=== PATIENT | male | born 1950 | race Caucasian/White ===

== ENCOUNTER 2021-07-03 13:45 | Inpatient (IN) | payer OTHER ==
[2021-07-03] MEDS ORDERED: NA CHLORIDE 0.9% 1,000 ML ONE (14:33)
--- NOTE | 2021-07-03 14:44 | RAD REPORT ---
EXAM DESCRIPTION: CT - Head C Spine Cap Wo Con - 07/03/2021 2:24 pm CLINICAL HISTORY: Trauma, head and neck injury. Chest, abdomen and pelvis pain. trauma, syncope COMPARISON: No comparisonsNo comparisons TECHNIQUE: CT head without contrast. CT cervical spine without contrast with coronal and sagittal reformatted images. CT chest, abdomen and pelvis with coronal and sagittal reformatted images of the spine. All CT scans are performed using dose optimization technique as appropriate and may include automated exposure control or mA/KV adjustment according to patient size. FINDINGS: CT HEAD WITHOUT CONTRAST: No intracranial hemorrhage, hydrocephalus or extra-axial fluid collection. Remote right cerebellar in farct Mucous retention cyst left maxillary sinus. The calvarium is intact. CT CERVICAL SPINE WITHOUT CONTRAST: No fracture or subluxation. The prevertebral soft tissues are normal in thickness. CT CHEST, ABDOMEN, PELVIS: Thorax: Chest Wall: No abnormal mass Lungs: Probable atelectasis at the right lung base. Pleura: No effusions or pneumothorax. Maylin/Mediastinum: No lymphadenopathy. Aorta/Pulmonary Arteries: Unremarkable Heart: Normal size. Abdomen/Pelvis: Liver: No acute abnormality or suspicious lesions. Biliary: No biliary ductal dilatation. Stomach: Gastrostomy tube. Duodenum: No significant focal abnormality. Pancreas: No significant abnormality. Spleen: No significant abnormality. Adrenal: No suspicious lesions. Kidney/ureter: No hydronephrosis. No renal calculi. Retroperitoneum: No retroperitoneal adenopathy. Vascular: No aneurysm. Bowel: No significant focal abnormality. Peritoneum: No ascites or free air. Fat containing inguinal hernias, left greater than right. Appende ctomy. Bladder: Grossly unremarkable. Reproductive: No adnexal masses. Bones: Slight L1 compression deformity. There is less than 20% loss of height. Other: n/a IMPRESSION: Age indeterminate L1 compression fracture, otherwise no evidence of significant trauma i s identified to the head, neck, chest, abdomen, or pelvis.
--- NOTE | 2021-07-03 15:09 | RAD REPORT ---
EXAM DESCRIPTION: RAD - Chest Single View - 07/03/2021 2:51 pm CLINICAL HISTORY: CONGESTION COMPARISON: No comparisons FINDINGS: Lines: None. Lungs: No evidence of edema or pneumonia. Pleural: No significant pleural effusions or pneumothorax. Cardiac: The heart size is within normal limits. Bones: No acute fractures. Other: IMPRESSION: No acute cardiopulmonary disease.
--- NOTE | 2021-07-03 15:12 | RAD REPORT ---
EXAM DESCRIPTION: RAD - Elbow Left 3 View - 07/03/2021 2:51 pm CLINICAL HISTORY: PAIN COMPARISON: No comparisons FINDINGS: No acute fracture. No malalignment. Lateral view is limited due to positioning. IMPRESSION: No acute osseous abnormality involving the left elbow.
--- NOTE | 2021-07-03 15:13 | RAD REPORT ---
EXAM DESCRIPTION: RAD - Hand Left 3 View - 07/03/2021 2:51 pm CLINICAL HISTORY: PAIN COMPARISON: No comparisons FINDINGS: No acute fracture. No malalignment. Degenerative changes are present at the interphalangea l joints at the base of the thumb. IMPRESSION: No acute osseous abnormality involving the left hand.
--- NOTE | 2021-07-03 15:14 | RAD REPORT ---
EXAM DESCRIPTION: RAD - Knee Right 3 View - 07/03/2021 2:52 pm CLINICAL HISTORY: PAIN COMPARISON: No comparisons FINDINGS: No acute fracture. No malalignment. No significant focal degenerative changes. IMPRESSION: No acute osseous abnormality involving the right knee.
--- NOTE | 2021-07-03 15:14 | RAD REPORT ---
EXAM DESCRIPTION: RAD - Knee Left 3 View - 07/03/2021 2:51 pm CLINICAL HISTORY: PAIN COMPARISON: No comparisons FINDINGS: No acute fracture. No malalignment. Mild medial and lateral compartment narrowing. IMPRESSION: No acute osseous abnormality involving the left knee.
--- NOTE | 2021-07-03 15:15 | RAD REPORT ---
EXAM DESCRIPTION: RAD - Hand Right 3 View - 07/03/2021 2:51 pm CLINICAL HISTORY: PAIN COMPARISON: No comparisons FINDINGS: No acute fracture. No malalignment. Degenerative changes are present at the interphalangea l joints. IMPRESSION: No acute osseous abnormality involving the right hand.
[2021-07-03 15:23] LABS: Absolute Lymphocytes (CBC) 0.7 K/uL (0.7-4.9); Basophils % 0.4 % (0-1.3); Hematocrit 45.5 % (39.6-49.0); Lymphocytes % 7.5 % (15.3-44.8); MPV 7.3 fL (7.6-11.3); Protime INR 1.04; RBC Red Blood Cell Count 5.45 M/uL (4.33-5.43)
[2021-07-03] MEDS ORDERED: IBUPROFEN 400 MG TAB ONE (15:38)
[2021-07-03 15:40] LABS: ALT/SGPT 32 U/L (12-78); AST/SGOT 22 U/L (15-37); Albumin 3.4 g/dL (3.4-5.0); Alkaline Phosphatase 75 U/L (45-117); BUN Blood Urea Nitrogen 14 mg/dL (7-18); Bicarbonate 33 mmol/L (21-32); Bilirubin Direct 0.2 mg/dL (0-0.2); Bilirubin Total 0.7 mg/dL (0.2-1.0); Glucose Level 101 mg/dL (74-106); Magnesium 2.5 mg/dL (1.8-2.4); NT PRO-BNP 125 pg/mL (<125); Potassium 4.1 mmol/L (3.5-5.1); Protein, Total 7.3 g/dL (6.4-8.2); Sodium Level 143 mmol/L (136-145); Troponin (Emerg Dept Use Only) < 0.02 ng/mL (0.0-0.045)
[2021-07-03 16:14] LABS: Amylase 52 U/L (25-115); Lipase 142 U/L (73-393)
[2021-07-03 16:16] LABS: Urine Blood Negative (Negative); Urine Glucose Negative (Negative); Urine Protein Negative (Negative)
--- NOTE | 2021-07-03 16:31 | ER ---
Nurse's Notes [facility] Name: Joe Ya Age: 71 yrs Sex: Male : 1950 Arrival Date: 07/03/2021 Time: 13:46 Bed 16 Private MD: Diagnosis: Syncope Near;Abrasion of left hand;Abrasion of right hand;Abrasion, right knee;Abrasion, left knee Presentation: 07/03 13:46 Chief complaint: EMS states: EMS Intervention Nurse states patient fell "sideways out of his ae4 wheelchair" One of the wheels broke on the wheelchair causing the patient be flung out of the wheelchair onto the ground. 16:22 Acuity: MICHAEL 3 ae4 17:31 Coronavirus screen: Vaccine status: Patient reports receiving the 2nd dose of the covid ae4 vaccine. Ebola Screen: Patient negative for fever greater than or equal to 101.5 degrees Fahrenheit, and additional compatible Ebola Virus Disease symptoms Patient denies exposure to infectious person. Patient denies travel to an Ebola-affected area in the 21 days before illness onset. Initial Sepsis Screen: Does the patient meet any 2 criteria? No. Patient's initial sepsis screen is negative. Does the patient have a suspected source of infection? No. Patient's initial sepsis screen is negative. Risk Assessment: Do you want to hurt yourself or someone else? Patient reports no desire to harm self or others. Onset of symptoms was July 03, 2021. 17:31 Method Of Arrival: EMS: [facility] ae4 Historical: - Allergies: 16:42 Codeine; ae4 - Home Meds: 15:56 Lisinopril Oral [Active]; Crestor oral [Active]; Prevacid Oral [Active]; Prozac Oral ae4 [Active]; Mucinex DM oral [Active]; Zyrtec Oral [Active]; Keppra Oral [Active]; Meclizine Oral [Active]; - PMHx: 15:56 Cerebrovascular accident; Hypertensive disorder; JOSHUA weakness; ae4 - PSHx: 15:56 PEG tube; ae4 - Immunization history:: Adult Immunizations up to date, Client reports receiving the 2nd dose of the Covid vaccine, Date received: May 12, 2021. - Social history:: Patient/guardian denies using alcohol, street drugs, The patient lives with family, Smoking status: Patient denies any tobacco usage or history of. - Family history:: not pertinent. Screenin:22 Abuse screen: Denies threats or abuse. Nutritional screening: No deficits noted. ae4 Tuberculosis screening: No symptoms or risk factors identified. Fall Risk Fall in past 12 months (25 points). Primary Survey: 13:46 NO uncontrolled hemorrhage observed. Breathing/Chest: Respiratory pattern: regular, ae4 Respiratory effort: spontaneous, Breath sounds: clear. Circulation: Cardiac rhythm: sinus rhythm Heart tones present. Disability Alert. Exposure/Environment: There is no evidence of uncontrolled external bleeding. Obvious injury(ies) are noted at this time: Small amount of blood noted to left forearm, elbow, and dorsal side of left hand. Assessment: 13:56 General: Appears in no apparent distress. uncomfortable, obese, Behavior is calm, ae4 cooperative. Pain: Complains of pain in dorsal aspect of distal phalanx of right thumb, dorsal aspect of proximal phalanx of right thumb, palmar aspect of distal phalanx of right thumb, palmar aspect of proximal phalanx of right thumb and right thumbnail Pain currently is 3 out of 10 on a pain scale. Neuro: Level of Consciousness is awake, alert, obeys commands, Oriented to person, place, situation, Patient is slow to respond, EMT and patient both state patient has a hx of a CVA and this is his baseline due to residual effects from the CVA. Patient also reports residual. left sided weakness. EENT: No signs and/or symptoms were reported regarding the EENT system. Patient wears glasses.. Cardiovascular: Heart tones S1 S2 present Patient's skin is warm and dry. Respiratory: Airway is patent Respiratory effort is even, unlabored, Respiratory pattern is regular, symmetrical. GI: Abdomen is round Patient has PEG tube placed in epigastric area. Stoma is clean without surrounding redness. : Patient is in adult pull-up. Derm: Skin is pink, warm \\T\\ dry. Derm: Wound noted left hand, left elbow and palmar aspect of left forearm. Derm: Skin tear to left elbow, left forearm and left dorsal part of hand. Superficial abrasions to JOSHUA knees. Patient reports pain to right great thumb. Musculoskeletal: Swelling present in medial aspect of left knee. 14:28 Reassessment: Reassessment: Patient appears in no apparent distress at this time. ae4 Patient and/or family updated on plan of care and expected duration. Pain level reassessed. 15:00 Reassessment: Patient and/or family updated on plan of care and expected duration. Pain ae4 level reassessed. Patient is alert, oriented x 3, equal unlabored respirations, skin warm/dry/pink. Patient states feeling better. 16:00 Reassessment: Patient appears in no apparent distress at this time. Patient and/or ae4 family updated on plan of care and expected duration. Pain level reassessed. Wound care provided, non adherent bandages applied to affected areas and wrapped with Kerlix wrap x3. Patient states feeling better. 16:30 Reassessment: Patient and/or family updated on plan of care and expected duration. Pain ae4 level reassessed. Patient states feeling better. 17:00 Reassessment: Patient and/or family updated on plan of care and expected duration. Pain ae4 level reassessed. Patient is alert, oriented x 3, equal unlabored respirations, skin warm/dry/pink. 18:55 Reassessment: Patient is alert, oriented x 3, equal unlabored respirations, skin ae4 warm/dry/pink. Patient states feeling better. Patient states symptoms have improved. 19:11 Reassessment: Report called to TIFFANY Omalley via telephone. ae4 19:13 Reassessment: Hand off care report given to TIFFANY Roche. ae4 Vital Signs: 13:46 BP 142 / 78; Pulse 71; Resp 16; Temp 97.5(TE); Pulse Ox 96% on R/A; Weight 99.79 kg ae4 (R); Pain 3/10; 15:10 BP 132 / 76; Pulse 71; Resp 16; Pulse Ox 98% on R/A; ae4 16:23 BP 146 / 79; Pulse 78; Resp 15; Pulse Ox 97% on R/A; ae4 18:43 BP 152 / 76; Pulse 74; Resp 15; Pulse Ox 97% on R/A; ae4 Trauma Score (Adult): 13:46 Eye Response: spontaneous(1); Verbal Response: oriented(1); Motor Response: obeys ae4 commands(2); Systolic BP: > 89 mm Hg(4); Respiratory Rate: 10 to 29 per min(4); Leslie Score: 15; Trauma Score: 12 ED Course: 13:46 Patient arrived in ED. ae4 13:46 Nando Preciado MD is Attending Physician. ma2 13:46 Arm band placed on right wrist. ae4 13:46 Bed in low position. Call light in reach. Side rails up X2. Adult w/ patient. Cardiac ae4 monitor on. Pulse ox on. NIBP on. Warm blanket given. 14:05 Baron Malloy, TIFFANY is Primary Nurse. ae4 14:[address] via stretcher. ae4 14:24 CT Traumagram (Head C Spine CAP wo con) In Process Unspecified. EDMS 14:51 XRAY Chest (1 view) In Process Unspecified. EDMS 14:51 XRAY Elbow LEFT 3 view In Process Unspecified. EDMS 14:51 Hand Left 3 View XRAY In Process Unspecified. EDMS 14:51 Hand Right 3 View XRAY In Process Unspecified. EDMS 14:51 Knee Left 3 View XRAY In Process Unspecified. EDMS 14:51 Knee Right 3 View XRAY In Process Unspecified. EDMS 15:02 Initial lab(s) drawn, by md, sent to lab. Inserted saline lock: 20 gauge in right dh3 forearm, using aseptic technique. Blood collected. 15:18 EKG done, by ED staff, reviewed by Nando Preciado MD. dh3 16:22 Triage completed. ae4 16:31 Deejay Byrne is Hospitalizing Provider. ma2 17:30 SARS-COV-2 RT PCR Sent. 3 19:20 No provider procedures requiring assistance completed. Patient admitted, IV remains in fu place. Administered Medications: 15:09 Drug: NS 0.9% 1000 ml Route: IV; Rate: 1 bolus; Site: right wrist; ae4 19:14 Follow up: IV Status: Completed infusion; IV Intake: 1000ml ae4 15:20 Drug: Advil (ibuprofen) 400 mg Route: PO; ae4 16:23 Follow up: Response: No adverse reaction; Pain is decreased ae4 Intake: 19:14 IV: 1000ml; Total: 1000ml. ae4 Outcome: 16:31 Decision to Hospitalize by Provider. ma2 19:30 Admitted to Tele accompanied by tech, room 419. fu 19:30 Admitted to Tele Report called to TIFFANY Omalley 19:30 Condition: stable 19:30 Instructed on the need for admit. 19:38 Patient left the ED. fu Signatures: Dispatcher [employer] Tali Barajas 3 Melchor Richter RN Nando De Oliveira MD MD ma2 Baorn Malloy RN RN ae4 Corrections: (The following items were deleted from the chart) 18:53 14:28 Reassessment: herberth ae4
--- NOTE | 2021-07-03 16:32 | EDPHYS ---
Physician Documentation [facility] Name: Joe Ya Age: 71 yrs Sex: Male : 1950 Arrival Date: 07/03/2021 Time: 13:46 Bed 16 Private MD: ED Physician Nando Preciado HPI: 07/03 14:22 This 71 yrs old Male presents to ER via Unassigned with complaints of Fall ma2 Injury. 14:22 Details of fall: The patient fell from seated position. Associated injuries: The ma2 patient sustained Bilateral hands bilateral knees,. Severity of symptoms: At their worst the symptoms were moderate, in the emergency department the symptoms are unchanged. The patient has experienced similar episodes in the past. states that he had an apneic episode/syncope after fall. Historical: - Allergies: 16:42 Codeine; ae4 - Home Meds: 15:56 Lisinopril Oral [Active]; Crestor oral [Active]; Prevacid Oral [Active]; Prozac Oral ae4 [Active]; Mucinex DM oral [Active]; Zyrtec Oral [Active]; Keppra Oral [Active]; Meclizine Oral [Active]; - PMHx: 15:56 Cerebrovascular accident; Hypertensive disorder; JOSHUA weakness; ae4 - PSHx: 15:56 PEG tube; ae4 - Immunization history:: Adult Immunizations up to date, Client reports receiving the 2nd dose of the Covid vaccine, Date received: May 12, 2021. - Social history:: Patient/guardian denies using alcohol, street drugs, The patient lives with family, Smoking status: Patient denies any tobacco usage or history of. - Family history:: not pertinent. ROS: 14:22 Constitutional: Negative for fever, chills, and weight loss. ma2 14:22 All other systems are negative. Exam: 14:22 Constitutional: This is a well developed, well nourished patient who is awake, alert, ma2 and in no acute distress. Head/Face: Normocephalic, atraumatic. Eyes: Pupils equal round and reactive to light, extra-ocular motions intact. Lids and lashes normal. Conjunctiva and sclera are non-icteric and not injected. Cornea within normal limits. Periorbital areas with no swelling, redness, or edema. ENT: Nares patent. No nasal discharge, no septal abnormalities noted. Tympanic membranes are normal and external auditory canals are clear. Oropharynx with no redness, swelling, or masses, exudates, or evidence of obstruction, uvula midline. Mucous membranes moist. Neck: Trachea midline, no thyromegaly or masses palpated, and no cervical lymphadenopathy. Supple, full range of motion without nuchal rigidity, or vertebral point tenderness. No Meningismus. Chest/axilla: Normal chest wall appearance and motion. Nontender with no deformity. No lesions are appreciated. Cardiovascular: Regular rate and rhythm with a normal S1 and S2. No gallops, murmurs, or rubs. Normal PMI, no JVD. No pulse deficits. Respiratory: Lungs have equal breath sounds bilaterally, clear to auscultation and percussion. No rales, rhonchi or wheezes noted. No increased work of breathing, no retractions or nasal flaring. Abdomen/GI: Soft, non-tender, with normal bowel sounds. No distension or tympany. No guarding or rebound. No evidence of tenderness throughout. Back: No spinal tenderness. No costovertebral tenderness. Full range of motion. Skin: Superficial abrasions to left elbow bilateral dorsal hands, and abrasions to both knees anteriorly. Otherwise skin is warm, dry with normal turgor. Normal color with no rashes, no lesions, and no evidence of cellulitis. MS/ Extremity: Pulses equal, no cyanosis. Neurovascular intact. Full, normal range of motion. 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 Awake and alert, GCS 15, oriented to person, place, time, and situation. Cranial nerves II-XII grossly intact. Motor strength 5/5 in both right extremities. Sensory grossly intact. Vital Signs: 13:46 BP 142 / 78; Pulse 71; Resp 16; Temp 97.5(TE); Pulse Ox 96% on R/A; Weight 99.79 kg ae4 (R); Pain 3/10; 15:10 BP 132 / 76; Pulse 71; Resp 16; Pulse Ox 98% on R/A; ae4 16:23 BP 146 / 79; Pulse 78; Resp 15; Pulse Ox 97% on R/A; ae4 18:43 BP 152 / 76; Pulse 74; Resp 15; Pulse Ox 97% on R/A; ae4 Trauma Score (Adult): 13:46 Eye Response: spontaneous(1); Verbal Response: oriented(1); Motor Response: obeys ae4 commands(2); Systolic BP: > 89 mm Hg(4); Respiratory Rate: 10 to 29 per min(4); Arvin Score: 15; Trauma Score: 12 MDM: 13:46 Patient medically screened. [facility] 14:22 Differential diagnosis: abrasion, closed head injury, contusion, fracture, multiple ma2 trauma, sprain, strain. 16:29 Data reviewed: vital signs, nurses notes. Counseling: I had a detailed discussion with [facility] the patient and/or guardian regarding: the historical points, exam findings, and any diagnostic results supporting the discharge/admit diagnosis, the presence of at least one elevated blood pressure reading (>120/80) during this emergency department visit, the need for outpatient follow up. Response to treatment: the patient's symptoms have markedly improved after treatment. ED course: Work-up is unremarkable except L1 compression fracture undetermined age, given the event that described as episode of apnea and unconsciousness, he needs ACS rule out, observation for syncope. Discussed with Dr. Roman. 07/03 13:54 Order name: Basic Metabolic Panel; Complete Time: 16:02 [facility] 07/03 13:54 Order name: CBC with Diff; Complete Time: 15:34 07/03 13:54 Order name: LFT's; Complete Time: 16:02 ne07/03 13:54 Order name: Magnesium; Complete Time: 16:02 ne07/03 13:54 Order name: NT PRO-BNP; Complete Time: 16:02 ne07/03 13:54 Order name: PT-INR; Complete Time: 15:34 ne07/03 13:54 Order name: Troponin (emerg Dept Use Only); Complete Time: 16:02 [facility] 07/03 13:54 Order name: XRAY Chest (1 view); Complete Time: 15:34 ne07/03 14:05 Order name: Amylase, Serum; Complete Time: 16:28 [facility] 07/03 14:05 Order name: Lipase; Complete Time: 16:28 [facility] 07/03 14:05 Order name: Type And Screen [facility] 07/03 16:16 Order name: Urine Dipstick-Ancillary; Complete Time: 16:28 EDMS 07/03 16:32 Order name: SARS-COV-2 RT PCR (Document "Date of Onset" if Symptomatic) ma2 07/03 16:33 Order name: SARS-COV-2 RT PCR [facility] 07/03 13:54 Order name: EKG; Complete Time: 13:55 ma2 07/03 13:54 Order name: Cardiac monitoring; Complete Time: 15:17 ma2 07/03 13:54 Order name: EKG - Nurse/Tech; Complete Time: 15:17 ma2 07/03 13:54 Order name: IV Saline Lock; Complete Time: 15:07 ma2 07/03 13:54 Order name: Labs collected and sent; Complete Time: 15:07 ma2 07/03 13:54 Order name: O2 Per Protocol; Complete Time: 15:07 ma2 07/03 13:54 Order name: O2 Sat Monitoring; Complete Time: 15:07 ma2 07/03 13:54 Order name: Urine Dipstick-Ancillary (obtain specimen); Complete Time: 16:23 ma2 07/03 14:05 Order name: CT Traumagram (Head C Spine CAP wo con); Complete Time: 15:34 ma2 07/03 14:05 Order name: XRAY Elbow LEFT 3 view; Complete Time: 15:34 ma2 07/03 14:05 Order name: Hand Left 3 View XRAY; Complete Time: 15:34 ma2 07/03 14:05 Order name: Hand Right 3 View XRAY; Complete Time: 15:34 ma2 07/03 14:05 Order name: Knee Left 3 View XRAY; Complete Time: 15:34 ma2 07/03 14:05 Order name: Knee Right 3 View XRAY; Complete Time: 15:34 ma2 07/03 14:05 Order name: NPO; Complete Time: 15:20 ma2 07/03 14:07 Order name: Dressing - Wound; Complete Time: 16:42 ma2 Administered Medications: 15:09 Drug: NS 0.9% 1000 ml Route: IV; Rate: 1 bolus; Site: right wrist; ae4 19:14 Follow up: IV Status: Completed infusion; IV Intake: 1000ml ae4 15:20 Drug: Advil (ibuprofen) 400 mg Route: PO; ae4 16:23 Follow up: Response: No adverse reaction; Pain is decreased ae4 Disposition Summary: 07/03/21 16:31 Hospitalization Ordered Hospitalization Status: Observation ma2 Provider: Deejay Byrne Location: Telemetry/MedSurg (observation) ma2 Condition: Stable ma2 Problem: new ma2 Symptoms: are unchanged ma2 Bed/Room Type: Standard ma2 Room Assignment: 419(07/03/21 18:38) dw Diagnosis - Syncope Near ma2 - Abrasion of left hand ma2 - Abrasion of right hand ma2 - Abrasion, right knee ma2 - Abrasion, left knee ma2 Forms: - Medication Reconciliation Form ma2 - SBAR form ma2 Signatures: Dispatcher [employer] Deedee Garcia RN RN dw Nando Preciado MD MD ma2 Baron Malloy RN RN ae4 Corrections: (The following items were deleted from the chart) 18:38 16:31 ma2 dw
--- NOTE | 2021-07-03 17:48 | P.HP ---
Certification for Inpatient With expected LOS: <2 Midnights Practitioner: I am a practitioner with admitting privileges, knowledge of patient current condition, hospital course, and medical plan of care. Services: Services provided to patient in accordance with Admission requirements found in Title 42 Section 412.3 of the Code of Federal Regulations Patient History Date of Service: 07/03/21 Reason for admission: Syncope History of Present Illness: 71-year-old gentleman with a history of multiple strokes, hyperlipidemia and hypertension, status post PEG tube, wheelchair-bound fell from his wheelchair today. Patient stated the left wheel came and he fell sustaining an abrasion to the left forearm and knees. Patient stated his noted that he passed out momentarily before the accident. Patient denies any dizziness or chest pain or palpitation prior to the fall. No witnessed seizure. The patient was brought to the emergency department where blood work is unremarkable. CT head negative for acute disease. EKG shows sinus rhythm. Troponin negative. UA negative. No sepsis. Patient was visiting from [facility]. Syncope versus TIA versus seizure suspected. Patient awake and alert, speech is slurred, denies any symptoms at the moment. He is placed under observation for further workup. - Past Medical/Surgical History -: History of CVA -: Hyperlipidemia -: Hypertension -: Dysphagia -: Dysarthria - Family History Father -: Heart disease, Cancer - Social History Smoking Status: Never smoker Alcohol use: No CD- Drugs: No Place of Residence: Home Review of Systems Other: Except as documented, all other systems reviewed and negative. Physical Examination - Physical Exam General: Alert, In no apparent distress, Oriented x3 HEENT: Mucous membr. moist/pink Neck: Supple, JVD not distended Respiratory: Clear to auscultation bilaterally, Normal air movement Cardiovascular: No edema, Regular rate/rhythm, Normal S1 S2 Gastrointestinal: Normal bowel sounds, Soft and benign, Non-distended, No tenderness, Other (PEG tube in place) Musculoskeletal: No swelling Integumentary: Other (Bruises on the left forearm and left knee) Neurological: Other (Dysarthria. Bilateral leg weakness) Lymphatics: No axilla or inguinal lymphadenopathy - Studies Laboratory Data (last 24 hrs) 07/03/21 15:02: Amylase 52, Lipase 142 07/03/21 15:02: PT 12.0, INR 1.04 07/03/21 15:02: WBC 9.60, Hgb 15.1, Hct 45.5, Plt Count 263 07/03/21 15:02: Sodium 143, Potassium 4.1, BUN 14, Creatinine 0.71, Glucose 101, Magnesium 2.5 H, Total Bilirubin 0.7, AST 22, ALT 32, Alkaline Phosphatase 75 Assessment and Plan - Problems (Diagnosis) (1) Syncope and collapse Current Visit: Yes Status: Acute (2) History of CVA (cerebrovascular accident) Current Visit: Yes Status: Acute (3) Hypertension Current Visit: Yes Status: Acute (4) Hyperlipidemia Current Visit: Yes Status: Acute (5) Dysphagia Current Visit: Yes Status: Acute - Plan Place patient under observation. Trend troponin. Seizure episode versus TIA versus syncope. Consult neurology. Obtain echocardiogram, carotid Doppler. Obtain MRI of brain to to assess for acute CVA. Obtain EEG. Reconcile and continue home medications. Blood pressure control. - Advance Directives Does patient have a Living Will: No Does patient have a Durable POA for Healthcare: No
[2021-07-03 20:09] VITALS: BMI 29.0
--- NOTE | 2021-07-03 22:06 | RAD REPORT ---
EXAM DESCRIPTION: - CP - 07/03/2021 9:50 pm CLINICAL HISTORY: Syncope COMPARISON: No comparisonsNo comparisons TECHNIQUE: Real-time sonographic evaluation of both carotid systems was performed. Doppler interroga tion was performed with waveform tracing bilaterally. FINDINGS: Normal high resistance waveforms are noted in both external carotid arteries. The common c arotid arteries and internal carotid arteries show normal low resistance waveforms. Hard plaque present at the right distal common carotid artery. Peak systolic and end diastolic veloci ty values and the ICA/CCA ratios are in the non-hemodynamically significant range. Antegrade flow seen in both vertebral arteries. IMPRESSION: Calcified plaque at the right distal common carotid artery. No evidence of a hemodynamically significant stenosis.
[2021-07-04 06:18] LABS: Absolute Lymphocytes (CBC) 1.2 K/uL (0.7-4.9); Basophils % 0.5 % (0-1.3); Hematocrit 42.6 % (39.6-49.0); Lymphocytes % 17.7 % (15.3-44.8); MPV 7.7 fL (7.6-11.3); RBC Red Blood Cell Count 5.14 M/uL (4.33-5.43)
[2021-07-04 06:44] LABS: ALT/SGPT 27 U/L (12-78); AST/SGOT 19 U/L (15-37); Alkaline Phosphatase 68 U/L (45-117); BUN Blood Urea Nitrogen 11 mg/dL (7-18); Bicarbonate 29 mmol/L (21-32); Bilirubin Total 0.8 mg/dL (0.2-1.0); Glucose Level 82 mg/dL (74-106); HDL Cholesterol 46 mg/dL (40-60); LDL Cholesterol, Calculated 78 (<130); Magnesium 2.4 mg/dL (1.8-2.4); Phosphorus 2.5 mg/dL (2.5-4.9); Potassium 3.7 mmol/L (3.5-5.1); Protein, Total 6.6 g/dL (6.4-8.2); Sodium Level 143 mmol/L (136-145); Thyroid Stimulating Hormone 0.958 uIU/mL (0.360-3.740)
[2021-07-04] MEDS ORDERED: PNEUMOCOCCAL VACCINE 0.5 ML IMVAC ONE (08:00)
[2021-07-04] MEDS ORDERED: INFLUENZA VACCINE (for 6+ mo) 0.5 ML DOSE IMVAC ONE (08:00)
[2021-07-04] MEDS ORDERED: POTASSIUM CL SA 10 MEQ TAB PO ONE (09:00)
[2021-07-04] MEDS: levETIRAcetam 500 MG TAB PO SCH ×2 (09:03→20:13)
[2021-07-04] MEDS: POTASS/SODIUM PHOSPHATE 1 PKT POWD.PACK PO SCH ×2 (09:03→09:36)
[2021-07-04] MEDS: ASPIRIN EC 81 MG TAB PO SCH (09:03)
[2021-07-04] MEDS: ENOXAPARIN 40 MG/0.4 ML SQ SCH (09:06)
--- NOTE | 2021-07-04 12:58 | P.PN ---
Subjective Date of Service: 07/04/21 Chief Complaint: Syncope Patient denies any complain. His home medication list is not available. Carotid Doppler is unremarkable. Physical Examination - Vital Signs Temperature: 98 F Blood Pressure: 147/78 Pulse: 92 Respirations: 16 Pulse Ox (%): 96 - Physical Exam General: Alert, In no apparent distress, Oriented x3 HEENT: Mucous membr. moist/pink Neck: JVD not distended Respiratory: Clear to auscultation bilaterally, Normal air movement Cardiovascular: No edema, Regular rate/rhythm, Normal S1 S2 Gastrointestinal: Normal bowel sounds, Soft and benign, Non-distended, Other (PEG tube) Musculoskeletal: No swelling, Other (Bruised left knee and left forearm) Neurological: Other (No focal motor deficits. Patient globally weak.) - Studies Laboratory Data (last 24 hrs) 07/03/21 15:02: Amylase 52, Lipase 142 07/03/21 15:02: PT 12.0, INR 1.04 07/03/21 15:02: WBC 9.60, Hgb 15.1, Hct 45.5, Plt Count 263 07/03/21 15:02: Sodium 143, Potassium 4.1, BUN 14, Creatinine 0.71, Glucose 101, Magnesium 2.5 H, Total Bilirubin 0.7, AST 22, ALT 32, Alkaline Phosphatase 75 Assessment And Plan - Current Problems (Diagnosis) (1) Syncope and collapse Current Visit: Yes Status: Acute (2) History of CVA (cerebrovascular accident) Current Visit: Yes Status: Acute (3) Hypertension Current Visit: Yes Status: Acute (4) Hyperlipidemia Current Visit: Yes Status: Acute (5) Dysphagia Current Visit: Yes Status: Acute - Plan Patient states he uses a walker and wheelchair at base Troponin trended negative. Blood pressure is moderately elevated. Seizure episode versus TIA versus syncope. Neurology to see patient. Echocardiogram and MRI are pending EEG also pending. Aspirin, lipitor. Patient stated he is also on prophylactic Keppra. He cannot provide his medication list. He started on Keppra 500 mg b.i.d. Will treat hypertension with oral amlodipine for now.
[2021-07-04] MEDS: AMLODIPINE 5 MG TAB PO SCH (14:20)
[2021-07-04] MEDS ORDERED: ACETAMINOPHEN 500 MG TAB PO PRN (16:33)
[2021-07-04] MEDS: ATORVASTATIN 40 MG TAB PO SCH (20:13)
[2021-07-05] MEDS: ASPIRIN EC 81 MG TAB PO SCH (07:56)
[2021-07-05] MEDS: AMLODIPINE 5 MG TAB PO SCH (07:56)
[2021-07-05] MEDS: levETIRAcetam 500 MG TAB PO SCH ×2 (07:56→19:48)
[2021-07-05] MEDS: ENOXAPARIN 40 MG/0.4 ML SQ SCH (07:57)
--- NOTE | 2021-07-05 15:03 | ECHO ---
HEIGHT: 6 ft 1 in WEIGHT: 220 lb 0 oz DATE OF STUDY: 07/05/[address]: reyna pierce 2-DIMENSIONAL: YES M.MODE: YES DOPPLER: YES COLOR FLOW: YES TDS: YES PORTABLE: NO DEFINITY: NO BUBBLE STUDY: NO DIAGNOSIS: SYNCOPE CARDIAC HISTORY: CATHERIZATION: SURGERY: PROSTHETIC VALVE: PACEMAKER: MEASUREMENTS (cm) DIASTOLIC (NORMALS) SYSTOLIC (NORMALS) IVSd 1.1 (0.6-1.2) LA Diam 3.5 (1.9-4.0) LVEF 55-60% LVIDd 4.6 (3.5-5.7) LVIDs 3.3 (2.0-3.5) %FS 27% LVPWd 1.2 (0.6-1.2) Ao Diam 3.4 (2.0-3.7) 2 DIMENSIONAL ASSESSMENT: RIGHT ATRIUM: NORMAL LEFT ATRIUM: NORMAL RIGHT VENTRICLE: NORMAL LEFT VENTRICLE: NORMAL TRICUSPID VALVE: NORMAL MITRAL VALVE: NORMAL PULMONIC VALVE: NORMAL AORTIC VALVE: NORMAL PERICARDIAL EFFUSION: NONE AORTIC ROOT: NORMAL LEFT VENTRICULAR WALL MOTION: NORMAL DOPPLER/COLOR FLOW: MILD AORTIC REGURGITATION. COMMENTS: NORMAL LEFT VENTRICULAR EJECTION FRACTION 55-60%. NORMAL WALL MOTION. MILD AORTIC REGURGITATION. TECHNOLOGIST: Laine REGAN
--- NOTE | 2021-07-05 16:10 | P.PN ---
Subjective Date of Service: 07/05/21 Chief Complaint: Syncope Patient denies any complain. Carotid Doppler is unremarkable. Patient is needing a lot of assistance with transfer. Physical Examination - Vital Signs Temperature: 99.3 F Blood Pressure: 143/63 Pulse: 77 Respirations: 18 Pulse Ox (%): 97 - Physical Exam General: Alert, In no apparent distress, Oriented x3 HEENT: Mucous membr. moist/pink Neck: JVD not distended Respiratory: Clear to auscultation bilaterally, Normal air movement Cardiovascular: No edema, Regular rate/rhythm, Normal S1 S2 Gastrointestinal: Soft and benign, Non-distended Musculoskeletal: No swelling Integumentary: Other (Bruise-the left arm and left knee) Neurological: Other (Left-sided weakness. Patient able to move all extremities.) Assessment And Plan - Current Problems (Diagnosis) (1) Syncope and collapse Current Visit: Yes Status: Acute (2) History of CVA (cerebrovascular accident) Current Visit: Yes Status: Acute (3) Hypertension Current Visit: Yes Status: Acute (4) Hyperlipidemia Current Visit: Yes Status: Acute (5) Dysphagia Current Visit: Yes Status: Acute - Plan Patient states he uses a walker and wheelchair at base Troponin trended negative. Patient with poor performance status at baseline. According to the , patient fell and later blacked out momentarily after the fall. Neurology-Dr. Silva input appreciated. Echocardiogram: Unremarkable, normal EF. Dr. Silva recommend inpatient rehab. is looking at [facility]. Continue Aspirin, lipitor. Currently Keppra for spasticity. Still waiting for his to provide patient's home medication list to reconcile. Continue amlodipine for hypertension. states patient is also on lisinopril for hypertension. Added lisinopril 20 mg daily.
--- NOTE | 2021-07-05 16:59 | RAD REPORT ---
EXAM DESCRIPTION: MRI - Brain Wo Cont - 07/05/2021 4:47 pm CLINICAL HISTORY: CVA COMPARISON: Head CT July 03, 2021 TECHNIQUE: Axial, sagittal, and coronal magnetic resonance images of the brain were obtained. FINDINGS: 4.5 centimeter old right cerebellar infarction. Old brainstem infarction. Diffusion-weighted/ADC mapping does not reveal evidence of acute infarction. The ventricles are normal caliber. An extra-axial fluid collection is not noted. Fluid within the sinuses/mastoids is not seen IMPRESSION: No acute intracranial abnormality noted
[2021-07-05] MEDS ORDERED: TESTOSTERONE 4 MG/24 HR TOP SCH (17:00)
[2021-07-05] MEDS: ATORVASTATIN 40 MG TAB PO SCH (19:48)
[2021-07-05] MEDS: TESTOSTERONE 4 MG/24 HR TOP SCH (20:14)
[2021-07-05] MEDS ORDERED: TESTOSTERONE 4 MG/24 HR TD SCH ×2 (21:00)
--- NOTE | 2021-07-06 00:04 | CON ---
Date of Consultation: 07/05/[address] Byrne because of syncope. History Of Present Illness: Mr. Ya is a 71-year-old right-handed patient, who has pedroza d multiple strokes, hypertension, dyslipidemia, got a PEG tube because of dysphagia, and has been mos tly wheelchair bound from a stroke, who apparently fell out of his wheelchair as the wheel came off. He struck the left side of his head and his arm and suffered an abrasion on the left forearm. His w alicia thought he passed out for a brief moment. He did not have any seizure-like activity. At the [facility], head CT scan negative for any acute ischemic or hemorrhagic change. The study did identify a chronic 4.5 cm right cerebellar infarct and a brain MRI confirmed that. Carotid artery ul trasound showed no evidence of hemodynamically significant stenosis. He has blood work, which delmis herr showed no abnormality in terms of complete blood count with differential. Coagulation panel un remarkable. Chemistries also essentially unremarkable. Liver function studies unremarkable. Lipid panel showed an LDL of 78 and an HDL of 46. Thyroid function normal. Urinalysis was negative and CO VID-19 test was negative. Carotid artery study showed no evidence of hemodynamically significant rubia nosis. Chest x-ray and chest CT scan showed no evidence of pneumonia. Echocardiogram showed ejectio n fraction of 55% with normal study except for mild aortic regurgitation. Past Medical History: Includes history of stroke, dyslipidemia, hypertension, dysphagia due to strok e with dysarthria. Family History: Cancer in father. Social History: No alcohol, tobacco, or IV drug use. Medications: Norvasc 5 mg daily, aspirin 81 mg daily, Lipitor 40 mg at bedtime, Lovenox 40 mg subcut aneously for DVT prophylaxis, Keppra 500 mg twice daily, lisinopril 20 mg daily. Allergies: CODEINE. Review of Systems: His notes he has been very sedentary for the last few months, not wanting to ambulate and has be come significantly debilitated and largely gets around despite wheelchair. He has a significant left upper and lower extremity weakness from his chronic stroke. Otherwise, negative on a 10-point syste ms review. Physical Examination: Vital Signs: Blood pressure 143/63, pulse 77, respiratory rate 18, temperature 99.3, and oxygen satu ration 97%. Weight 220 pounds, height 6 feet 1 inch, BMI 29. General: Mr. Ya is resting in bed. He does follow simple commands, but no significant difficu lty. He has a slight bump in the left forehead from his fall. Left arm, the forearm is bandaged fro m abrasions. HEENT: Otherwise normocephalic. His sclerae are anicteric. Oropharynx is moist. Neck: Supple. Chest: Clear. Heart: Regular. Extremities: Show no significant edema or cyanosis. Neurologic: He follows simple commands without difficulty. Alert and oriented. Cranial nerves 2 th rough 12 show slight decrease of the left nasolabial fold with clear excursions and smiling and decre ased light touch in left face compared to the right side. Otherwise, intact cranial nerves. Motor e xamination; he has 3-4 strength in left upper and lower extremities compared to the right side, which is 5-/5 in the right upper and lower extremities. Sensation decreased to light touch and temperatur e in left upper and lower extremities compared to the right side. Coordination; there is significant dysmetria in the left upper and lower extremities compared to the right side is intact. Gait; I req uired moderate assistance to sit to stand and did not take any steps. Assessment: Mr. 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 There is no evidence of any ac [place] change based on his exam and his brain imaging. No evidence that he had a recent seizure. Plan: 1.Continue all medications including Keppra. 2.Continue with the antiplatelet medication regimen including aspirin 81 mg daily. Continue Prinivi l 10 mg daily and Keppra 500 mg twice daily. 3.The patient to be discharged home and actually may be discharged to intermediate depending and if he is qualified to go for therapy. He is really not able to bend himself at home. His is no t able to manage him given his significant weakness and debility. He again would benefit from aggres sive therapy in a very safe environment, but he may not be able to withstand 3 hours of therapy. He has required an acute inpatient rehab perhaps maybe in a intermediate unit, which may be more appr opriate. IGNACIA/MIREYA Voice ID: [id number] Report ID: [id number]
[2021-07-06 04:22] LABS: Absolute Lymphocytes (CBC) 1.1 K/uL (0.7-4.9); Basophils % 0.6 % (0-1.3); Hematocrit 42.6 % (39.6-49.0); Lymphocytes % 15.5 % (15.3-44.8); MPV 7.5 fL (7.6-11.3); RBC Red Blood Cell Count 5.14 M/uL (4.33-5.43)
[2021-07-06 04:31] LABS: ALT/SGPT 24 U/L (12-78); AST/SGOT 22 U/L (15-37); Albumin 3.2 g/dL (3.4-5.0); Alkaline Phosphatase 75 U/L (45-117); BUN Blood Urea Nitrogen 16 mg/dL (7-18); Bicarbonate 31 mmol/L (21-32); Bilirubin Total 0.8 mg/dL (0.2-1.0); Glucose Level 98 mg/dL (74-106); Potassium 4.2 mmol/L (3.5-5.1); Protein, Total 6.8 g/dL (6.4-8.2); Sodium Level 145 mmol/L (136-145)
--- NOTE | 2021-07-06 07:40 | EEG ---
CHART: [id number] TEST ID#: [id number] DATE OF STUDY: 07-05-21 THE EEG WAS RECORDED PORTABLE IN THE PATIENT'S ROOM ON A 17 CHANNEL MACHINE. ELECTRODES WERE APPLIED IN THE USUAL MANNER USING THE INTERNATIONAL 10-20 SYSTEM. THE WAKING BACKGROUND RHYTHM IN THIS RECORD CONSISTS OF FAIRLY WELL DEVELOPED AND FAIRLY WELL ORGANIZED WAVES OF 9.5 HZ., MAXIMAL IN THE POSTERIOR HEAD REGIONS WHICH ATTENUATE NORMALLY WITH EYE OPENING. LOW-VOLTAGE 18-22 HZ ACTIVITY IS EXPRESSED IN THE FRONTAL REGIONS. THERE ARE NO FOCAL OR LATERALIZING FEATURES. NO EPILEPTIFORM ACTIVITY APPEARS. SLEEP DID NOT OCCUR. HYPERVENTILATION WAS NOT PERFORMED. PHOTIC STIMULATION PRODUCED POOR DRIVING BILATERALLY. IMPRESSION: NORMAL EEG FOR THE AGE OF THE PATIENT IN [place].
[2021-07-06] MEDS: ENOXAPARIN 40 MG/0.4 ML SQ SCH (08:17)
[2021-07-06] MEDS: ASPIRIN EC 81 MG TAB PO SCH (08:17)
[2021-07-06] MEDS: levETIRAcetam 500 MG TAB PO SCH ×2 (08:17→21:00)
[2021-07-06] MEDS: AMLODIPINE 5 MG TAB PO SCH (08:18)
[2021-07-06] MEDS ORDERED: lisinopriL 20 MG TAB PO SCH (09:00)
--- NOTE | 2021-07-06 17:31 | P.PN ---
Date of Service: 07/06/21 Subjective: No acute events overnight Patient reports feeling okay, no new complaints Continues with some generalized weakness ROS: 10 point ROS as noted above, otherwise negative Physical exam GEN: Alert, oriented, NAD HEENT: Normal conjunctiva, sclera anicteric CV: Regular rate and rhythm, no edema Pulm: Nonlabored respirations on room air ABD: Soft, nontender, nondistended Integumentary: A few mild superficial lacerations/abrasions on left upper ex tremity. Neuro: Left-sided weakness Problem List Syncope History of CVA Hypertension Hyperlipidemia Dysphagia Patient is a walker and wheelchair at baseline Troponin trended negative/flat According to the , patient fell 1 month later blacked out momentarily NeurologyDrSly Silva consulted, recommend continue medications; may benefit from inpatient rehab if can tolerate 3 hours prefers [facility] Echocardiogram: Unremarkable, normal EF Continue aspirin, statin, Keppra Continue home lisinopril states he takes it at bedtime Dispo: Social service consulted for inpatient rehab, prefers [facility] with Time Spent Managing Pts Care (In Minutes): 35
[2021-07-06] MEDS: TESTOSTERONE 4 MG/24 HR TOP SCH (21:00)
[2021-07-06] MEDS: ATORVASTATIN 40 MG TAB PO SCH (21:00)
[2021-07-07 05:04] LABS: ALT/SGPT 31 U/L (12-78); AST/SGOT 26 U/L (15-37); Absolute Lymphocytes (CBC) 1.2 K/uL (0.7-4.9); Albumin 2.9 g/dL (3.4-5.0); Alkaline Phosphatase 75 U/L (45-117); BUN Blood Urea Nitrogen 15 mg/dL (7-18); Basophils % 1.4 % (0-1.3); Bicarbonate 30 mmol/L (21-32); Bilirubin Total 0.6 mg/dL (0.2-1.0); Glucose Level 97 mg/dL (74-106); Hematocrit 42.3 % (39.6-49.0); Lymphocytes % 21.8 % (15.3-44.8); MPV 7.5 fL (7.6-11.3); Potassium 3.7 mmol/L (3.5-5.1); Protein, Total 6.6 g/dL (6.4-8.2); RBC Red Blood Cell Count 5.12 M/uL (4.33-5.43); Sodium Level 142 mmol/L (136-145)
--- NOTE | 2021-07-07 06:14 | P.PN ---
Date of Service: 07/07/21 Subjective: No acute events overnight. Patient reports feeling better, continues with generalized weakness, is wheelchair-bound. Working with physical therapy, stood up yesterday Reports some slight lightheadedness today, blood pressure was borderline low ROS: 10 point ROS as noted above, otherwise negative Physical exam GEN: Alert, oriented, NAD HEENT: Normal conjunctiva, sclera anicteric CV: Regular rate and rhythm, no edema Pulm: Nonlabored respirations on room air ABD: Soft, nontender, nondistended Integumentary: A few mild superficial lacerations/abrasions on left upper extremity and lower extremity Neuro: Left-sided weakness Problem List Syncope History of CVA, left-sided weakness Hypertension Hyperlipidemia Dysphagia, s/p PEG tube Patient states he has basically been wheelchair-bound at baseline Troponin trended negative/flat According to the , patient fell and later blacked out momentarily NeurologyDr. Ricardo consulted, recommend continue medications; may benefit from inpatient rehab if can tolerate 3 hours prefers [facility] Echocardiogram: Unremarkable, normal EF Continue aspirin, statin, Keppra Continue home lisinopril states he takes it at bedtime Discontinue amlodipine overall seems to be improving / stable Dispo: Social service consulted for inpatient rehab, prefers [facility] with Time Spent Managing Pts Care (In Minutes): 35
[2021-07-07] MEDS ORDERED: POTASSIUM CL SA 10 MEQ TAB PO ONE (08:04)
[2021-07-07] MEDS: ASPIRIN EC 81 MG TAB PO SCH (08:05)
[2021-07-07] MEDS: levETIRAcetam 500 MG TAB PO SCH ×2 (08:05→20:05)
[2021-07-07] MEDS: AMLODIPINE 5 MG TAB PO SCH (08:05)
[2021-07-07] MEDS: ENOXAPARIN 40 MG/0.4 ML SQ SCH (08:06)
[2021-07-07] MEDS: ATORVASTATIN 40 MG TAB PO SCH (20:00)
[2021-07-07] MEDS: TESTOSTERONE 4 MG/24 HR TOP SCH (20:06)
[2021-07-07] MEDS ORDERED: lisinopriL 20 MG TAB PO SCH (21:00)
[2021-07-08 08:39] VITALS: BP 124/60; TEMP 97.9
[2021-07-08] MEDS: ENOXAPARIN 40 MG/0.4 ML SQ SCH (08:47)
[2021-07-08] MEDS: ASPIRIN EC 81 MG TAB PO SCH (08:47)
[2021-07-08] MEDS: levETIRAcetam 500 MG TAB PO SCH (08:47)
[2021-07-08 09:57] VITALS: O2SAT 95
--- NOTE | 2021-07-08 20:35 | P.DS ---
Admission Date: 07/05/21 Discharge Date: 07/08/21 Disposition: DC HOME/HOME HEALTH CARE Discharge Condition: GOOD Reason for Admission: Syncope Consultations: Neurology - Dr. Silva Procedures: CXR, Elbow, b/l hand x-ray, b/l knee xray (07/03): no acute process / no fractures CT Head/c-spine, chest/abd/pelvis (07/03): No intracranial hemorrhage, hydrocephalus or extra-axial fluid collection. Remote right cerebellar infarct Mucous retention cyst left maxillary sinus. The calvarium is intact. CT CERVICAL SPINE WITHOUT CONTRAST: No fracture or subluxation. The prevertebral soft tissues are normal in thickness. IMPRESSION: Age indeterminate L1 compression fracture, otherwise no evidence of significant trauma is identified to the head, neck, chest, abdomen, or pelvis. Carotid U/S (07/03): IMPRESSION: Calcified plaque at the right distal common carotid artery. No evidence of a hemodynamically significant stenosis. EEG (07/03): IMPRESSION: NORMAL EEG FOR THE AGE OF THE PATIENT IN [place]. MRI brain (07/05): IMPRESSION: No acute intracranial abnormality noted Echo (07/05): normal LVEF: 55-60%. normal wall motion. mild aortic regurgitation Problem List Syncope History of CVA, left-sided weakness Hypertension Hyperlipidemia Dysphagia, s/p PEG tube Brief History of Present Illness: 71-year-old gentleman with a history of multiple strokes, hyperlipidemia and hypertension, status post PEG tube, wheelchair-bound fell from his wheelchair today. Patient stated the left wheel came and he fell sustaining an abrasion to the left forearm and knees. Patient stated his noted that he passed out momentarily before the accident. Patient denies any dizziness or chest pain or palpitation prior to the fall. No witnessed seizure. The patient was brought t o the emergency department where blood work is unremarkable. CT head negative for acute disease. EKG shows sinus rhythm. Troponin negative. UA negative. No sepsis. Patient was visiting from [facility]. Syncope versus TIA versus seizure suspected. Patient awake and alert, speech is slurred, denies any symptoms at the moment. He is placed under observation for further workup. Hospital Course: Patient had extensive workup as noted above with negative results. Neurology was consulted. Unclear etiology for his syncope, however infection, tumor, stroke, bleed ruled out. He was restarted on his home medications and was stable. PT evaluated patient and felt he may benefit from inpatient rehab. Unfortunately, insurance denied inpatient rehab. Patient and did not want to go to SNF and decided to go home with home PT. Vital Signs/Physical Exam: Physical exam GEN: Alert, oriented, NAD HEENT: Normal conjunctiva, sclera anicteric CV: Regular rate and rhythm, no edema Pulm: Nonlabored respirations on room air ABD: Soft, nontender, nondistended Integumentary: A few mild superficial lacerations/abrasions on left upper extremity and lower extremity Neuro: Left-sided weakness Temp Pulse Resp BP Pulse Ox 97.9 F 67 16 124/60 95 07/08/21 08:00 07/08/21 08:00 07/08/21 08:00 07/08/21 08:00 07/08/21 08:00 Laboratory Data at Discharge: WBC 5.40 K/uL (4.3-10.9) D 07/07/21 03:42 Hgb 14.2 g/dL (13.6-17.9) 07/07/21 03:42 Hct 42.3 % (39.6-49.0) 07/07/21 03:42 Plt Count 229 K/uL (152-406) 07/07/21 03:42 PT 12.0 SECONDS (9.5-12.5) 07/03/21 15:02 INR 1.04 07/03/21 15:02 Sodium 142 mmol/L (136-145) 07/07/21 03:42 Potassium 3.7 mmol/L (3.5-5.1) 07/07/21 03:42 BUN 15 mg/dL (7-18) 07/07/21 03:42 Creatinine 0.60 mg/dL (0.55-1.3) 07/07/21 03:42 Glucose 97 mg/dL (74-106) 07/07/21 03:42 Phosphorus 2.5 mg/dL (2.5-4.9) 07/04/21 05:29 Magnesium 2.4 mg/dL (1.8-2.4) 07/04/21 05:29 Total Bilirubin 0.6 mg/dL (0.2-1.0) 07/07/21 03:42 AST 26 U/L (15-37) 07/07/21 03:42 ALT 31 U/L (12-78) 07/07/21 03:42 Alkaline Phosphatase 75 U/L (45-117) 07/07/21 03:42 Troponin I < 0.02 ng/mL (0.0-0.045) 07/04/21 00:41 Triglycerides 89 mg/dL (<150) 07/04/21 05:29 Cholesterol 142 mg/dL (<200) 07/04/21 05:29 HDL Cholesterol 46 mg/dL (40-60) 07/04/21 05:29 Cholesterol/HDL Ratio 3.09 07/04/21 05:29 Amylase 52 U/L (25-115) 07/03/21 15:02 Lipase 142 U/L (73-393) 07/03/21 15:02 Home Medications: Fluoxetine HCl 5 ml 1X 07/04/21 Lisinopril [Zestril] 2.5 mg 1X 07/04/21 Rosuvastatin Calcium 5 mg PO 1X 07/04/21 Testosterone [Androderm] 4 mg 1X 07/04/21 Aspirin [Jet Chewable Aspirin] 81 mg PO DAILY 30 Days #30 tab.chew 07/08/21 levETIRAcetam [Roweepra] 500 mg PO BID 30 Days #60 tablet 07/08/21 New Medications: Aspirin [Jet Chewable Aspirin] 81 mg PO DAILY 30 Days #30 tab.chew levETIRAcetam [Roweepra] 500 mg PO BID 30 Days #60 tablet Physician Discharge Instructions: It is unclear what lead to the fall. You were evaluated by CT head, MRI head, EEG, Neurology consult. All did not reveal any acute problem / no stroke. Your blood pressure was slightly elevated when you first arrived but improved with home lisinopril. Unfortunately insurance denied inpatient rehab. You are discharged home with home PT to continue working on your strength. Continue medications as previously prescribed - aspirin, lisinopril, statin, keppra. Follow up with PCP in 3-5 days Follow up with Neurology in 1-2 months Activity: Fall precautions Followup: Tono Silva MD [ASSOCIATE-ACTIVE - CAN ADMIT] - (neurologist- call to schedule an appointment for 1-2 months ) Mateo Peña, DO [ACTIVE - CAN ADMIT] - (PCP- call to schedule an appointment for a follow up visit in 3-5 days ) Time spent managing pt's care (in minutes): 45
== END 2021-07-08 09:00 | disposition home health service (06) | DRG 312 ==
LOC: ER 13:45 → ERHOLD 17:43 → 4TH 18:56 → OBSVTOIN 07-05 12:39
PROVIDERS: ADMIT Internal Medicine; ATTEND Internal Medicine
DX: R55 Syncope and collapse (principal); I69.354 Hemiplegia and hemiparesis following cerebral infarction affecting left non-dominant side; I10 Essential (primary) hypertension; E78.5 Hyperlipidemia, unspecified; R13.10 Dysphagia, unspecified; S50.812A Abrasion of left forearm, initial encounter; S80.812A Abrasion, left lower leg, initial encounter; W05.0XXA Fall from non-moving wheelchair, initial encounter; Y92.009 Unspecified place in unspecified non-institutional (private) residence as the place of occurrence of the external cause; Z99.3 Dependence on wheelchair; Z23 Encounter for immunization; Z20.822 Contact with and (suspected) exposure to COVID-19
CPT/HCPCS: 36415; 70450; 70551; 71045; 71250; 72125; 80048; 80053; 80061; 80076; 81003; 82150; 82947; 83690; 83735; 83880; 84100; 84443; 84484; 85025; 85610; 86850; 86900; 86901; 90471; 90732; 93005; 93306; 93880; 94760; 95816; 96360; 96361; 97110; 97161; 97530; 99285; G0378; J1650; J7030; Q2035; U0003